=== PATIENT | female | born 1950 | race Caucasian/White ===

== ENCOUNTER 2019-08-19 10:07 | Emergency (ER) | payer OTHER ==
[~2019-08-19] VITALS: Ht 172.7 cm; Wt 98.9 kg
[2019-08-19] MEDS ORDERED: OMEGA-3 FISH1200 MG PO (10:20)
[2019-08-19] MEDS ORDERED: ASPIR 8181 M1 PO (10:20)
[2019-08-19] MEDS ORDERED: CRESTOR10 MG PO (10:22)
[2019-08-19] MEDS ORDERED: XIGDUO XR 10 M1 EAC1 PO (10:22)
[2019-08-19] MEDS ORDERED: GLUCOSAMINE1000 MG PO (10:23)
[2019-08-19 10:30] LABS: ABSOLUTE NEUTROPHILS 7.9 thou/uL (1.4-8.2); BASOPHILS 0.9 % (0.0-2.0); EOSINOPHILS 2.9 % (0.0-3.0); HEMATOCRIT 49.2 % (37.0-47.0); HEMOGLOBIN 15.8 gm/dL (12.0-15.0); LYMPHOCYTES 14.5 % (24.0-44.0); MCH 29.7 pg (26.0-34.0); MCHC 32.2 g/dL (28.0-37.0); MCV 92.2 fL (80.0-100.0); MONOCYTES 5.8 % (1.0-8.0); PLATELET COUNT 311 thou/uL (150-400); POLYS 75.9 % (36.0-66.0); RBC 5.34 mil/uL (4.20-5.00); RDW 13.7 % (10.5-14.5); WBC 10.4 thou/uL (4.0-11.0)
[2019-08-19 10:35] LABS: ANION GAP 12 mmol/L (7-16); BUN 18 mg/dL (7-18); CALCIUM 9.7 mg/dL (8.5-10.1); CHLORIDE 105 mmol/L (98-107); CO2 25 mmol/L (21-32); GLUCOSE 273 mg/dL (74-106); POTASSIUM 4.6 mmol/L (3.5-5.1); SODIUM 142 mmol/L (136-145)
[2019-08-19] MEDS ORDERED: CRANBERRY400 M1 PO (10:39)
[2019-08-19] MEDS ORDERED: BLACK COHOSH540 MG PO (10:40)
[2019-08-19 10:45] LABS: ALBUMIN 4.1 g/dL (3.4-5.0); SGOT 19 U/L (15-37); SGPT 21 U/L (30-65); TOTAL BILIRUBIN 0.5 mg/dL (<0.1-1.0); TOTAL PROTEIN 7.8 g/dL (6.4-8.2); TROPONIN-I <0.06 ng/mL (<0.06)
[2019-08-19 12:03] VITALS: BP 126/61
--- NOTE | 2019-08-19 21:48 | EKG ---
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1950 Requested By: Alana Granados Order Number: [id number] MD: Surendra Cardenas Measurements Intervals [place] Rate: 93 P: 74 TN: 159 QRS: 79 QRSD: 96 T: 40 QT: 344 QTc: 428 Interpretive Statements Sinus rhythm Normal tracing Compared to ECG 04/26/2015 14:04:11 Sinus arrhythmia no longer present Electronically Signed On 08-19-2019 21:48:37 AIX ADMINISTRATOR by Surendra Cardenas [email or web address] <ELECTRONICALLY SIGNED> By: Surendra Cardenas MD, [facility] 08/19/19 [id number] [phone] Surendra Cardenas MD, FACC /EPI
== END 2019-08-19 12:05 | disposition home or self-care (01) ==
LOC: ER 10:07
PROVIDERS: Emergency Medicine
DX: I47.9 Paroxysmal tachycardia, unspecified (principal); E11.9 Type 2 diabetes mellitus without complications; Z88.2 Allergy status to sulfonamides

== ENCOUNTER 2019-08-30 07:07 | Inpatient (IN) | payer OTHER ==
[~2019-08-30] VITALS: Ht 172.7 cm; Wt 100.7 kg
[2019-08-30] VITALS (7 sets, daily range): BP systolic 119–171; BP diastolic 54–113
[~2019-08-30 07:07] MED LIST: ASPIR 8181 M1 PO; BLACK COHOSH540 MG PO; CRANBERRY400 M1 PO; CRESTOR10 MG PO; GLUCOSAMINE1000 MG PO; OMEGA-3 FISH1200 MG PO; XIGDUO XR 10 M1 EAC1 PO
[2019-08-30 07:27] LABS: ABSOLUTE NEUTROPHILS 4.9 thou/uL (1.4-8.2); BASOPHILS 0.7 % (0.0-2.0); EOSINOPHILS 9.6 % (0.0-3.0); HEMATOCRIT 49.2 % (37.0-47.0); HEMOGLOBIN 15.9 gm/dL (12.0-15.0); LYMPHOCYTES 17.3 % (24.0-44.0); MCH 29.7 pg (26.0-34.0); MCHC 32.3 g/dL (28.0-37.0); MCV 91.9 fL (80.0-100.0); MONOCYTES 7.2 % (1.0-8.0); PLATELET COUNT 287 thou/uL (150-400); POLYS 65.2 % (36.0-66.0); RBC 5.35 mil/uL (4.20-5.00); RDW 13.4 % (10.5-14.5); WBC 7.5 thou/uL (4.0-11.0)
[2019-08-30 07:34] LABS: ANION GAP 12 mmol/L (7-16); BUN 19 mg/dL (7-18); CALCIUM 9.9 mg/dL (8.5-10.1); CHLORIDE 103 mmol/L (98-107); CO2 26 mmol/L (21-32); CREATININE 0.9 mg/dL (0.6-1.0); GLUCOSE 219 mg/dL (74-106); POTASSIUM 4.3 mmol/L (3.5-5.1); SODIUM 141 mmol/L (136-145)
[2019-08-30 07:45] LABS: ALBUMIN 3.9 g/dL (3.4-5.0); MAGNESIUM 1.9 mg/dL (1.8-2.4); SGOT 12 U/L (15-37); SGPT 24 U/L (30-65); TOTAL BILIRUBIN 0.5 mg/dL (<0.1-1.0); TROPONIN-I <0.06 ng/mL (<0.06)
[2019-08-30] MEDS ORDERED: CEFDINIR300 MG PO (07:53)
--- NOTE | 2019-08-30 08:56 | EKG ---
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 : 1950 Requested By: Peri Jolley Order Number: [id number] MD: Surendra Cardenas Measurements Intervals [place] Rate: 141 P: [place]: QRS: 86 QRSD: 92 T: -72 QT: 292 QTc: 447 Interpretive Statements Atrial fibrillation Borderline right axis deviation Repol abnrm suggests ischemia, diffuse leads Compared to ECG 08/19/2019 10:18:04 ST segment abnormality is new Sinus rhythm no longer present Electronically Signed On 08-30-2019 8:56:11 ROLL TRUCKER by Surendra Cardenas [email or web address] <ELECTRONICALLY SIGNED> By: Surendra Cardenas MD, [facility] 08/30/19 [phone] Surendra Cardenas MD, FACC /EPI
--- NOTE | 2019-08-30 11:36 | NUR ---
PT IS ALERT AND ORIENTED X4. SPOUSE AT BEDSIDE FOR SUPPORT. LUNGS ARE CLEAR. PT IS IN AFIB AT A RATE OF 87. ECHO AT BEDSIDE BEING DONE. PT HAS HAD HEART PALPATIONS SHE REPORTS WHAT BROUGHT HER TO THE HOSPITAL. DENIES ANY CHEST PAIN AT THIS TIME. CONSULT PLACED TO CARDIOLOGY. SCDS ON BILATERAL NO ISSUES OR CONCERNS NOTED AT THIS TIME.
--- NOTE | 2019-08-30 11:59 | 2DMMODE ---
[facility] [address] [place] [address] 2 D/M-MODE ECHOCARDIOGRAM Name: ERMACONSUELO DRISCOLL Room #: 218-P ADM IN M.R.#: [id number] Admission: 08/30/19 Attend Phys: Morgan Yanes Discharge: Date of : 54 Report #: [id number] THIS REPORT FOR: //name// APPROVED REPORT Study performed: 08/30/2019 11:04:04 EXAM: Comprehensive 2D, Doppler, and color-flow Echocardiogram Patient Location: Bedside Room #: 218 Status: routine BSA: 2.11 HR: 80 bpm BP: 130/79 mmHg Rhythm: Atrial Fibrillation Other Information Study Quality: Adequate/difficult parasternal views. Indications Afib with RVR. DM, HTN, HLP. 2D Dimensions RVDd: 32.03 mm IVSd: 10.32 (7-11mm) LVOT Diam: 19.94 (18-24mm) LVDd: 33.51 mm PWd: 9.89 (7-11mm) LVDs: 22.95 (25-40mm) Aortic Root: 27.60 mm Volumes Left Atrial Volume (Systole) Single Plane 4CH: 45.09 mL Single Plane 2CH: 56.66 mL LA ESV Index: 27.00 mL/m2 Aortic Valve AoV Peak Paxton.: 1.28 m/s AO Peak Gr.: 6.78 mmHg LVOT Max P.57 mmHg LVOT Max V: 1.18 m/s CAROLIN Vmax: 2.87 cm2 Mitral Valve MV Decel. Time: 205.75 ms [facility] [address] [place] [address] 2 D/M-MODE ECHOCARDIOGRAM Name: CONSUELO RITCHIE Room #: 218-P [facility] IN [facility].#: [id number] Admission: 08/30/19 Attend Phys: Morgan Yanes Discharge: Date of : 54 Report #: [id number] E Max Paxton.: 0.93 m/s IVRT: 87.66 ms Tricuspid Valve RAP Estimate: 5.00 mmHg Left Ventricle The left ventricle is normal size. There is normal LV segmental wall motion. There is normal left ventricular wall thickness. Left ventricular systolic function is normal. LVEF is 65-70%. This study is not technically sufficient to allow evaluation of the LV diastolic function due to atrial fibrillation. Right Ventricle The right ventricle is normal size. The right ventricular systolic function is normal. Atria The left atrium size is normal. The right atrium size is normal. Aortic Valve The aortic valve is normal in structure. No aortic regurgitation is present. There is no aortic valvular stenosis. Mitral Valve The mitral valve is normal in structure. There is no mitral valve regurgitation noted. No evidence of mitral valve stenosis. Tricuspid Valve The tricuspid valve is normal in structure. There is no tricuspid valve regurgitation noted. Unable to assess PA pressure. Pulmonic Valve Pulmonic valve is not well visualized. Great Vessels The aortic root is normal in size. IVC is normal in size and collapses >50% with inspiration. Pericardium There is no pericardial effusion. <Conclusion> The left ventricle is normal size. There is normal left ventricular wall thickness. [facility] [address] [address] 2 D/M-MODE ECHOCARDIOGRAM Name: CONSUELO RITCHIE Room #: [facility] ADM IN .R.#: [id number] Admission: 08/30/19 Attend Phys: Morgan Yanes Discharge: Date of : 54 Report #: [id number] Left ventricular systolic function is normal. The right ventricle is normal size. The left atrium size is normal. The aortic valve is normal in structure. There is no mitral valve regurgitation noted. There is no tricuspid valve regurgitation noted. <ELECTRONICALLY SIGNED> By: Alonso Cleaning MD 08/30/19 [id number] Alonso Cleaning MD /INF
--- NOTE | 2019-08-30 15:07 | NUR ---
CONTINUE TO PROGRESS TOWARDS ONGOING GOALS AND CARE PLAN PER NURSING. SPOUSE AT BEDSIDE FOR SUPPORT.
[2019-08-31 00:05] VITALS: BP 118/51
[2019-08-31 02:07] LABS: GLYCOHEMOGLOBIN (HGB A1C) 7.5 % (4.8-5.6)
--- NOTE | 2019-08-31 03:01 | NUR ---
ASSUMED CARE OF PATIENT AT 1900. VSS, AFEBRILE. UP AD TITUS IN THE ROOM. DENIES PAIN, SOA OR N/V. AMIODARONE GTT INFUSING PER ORDERS. SLEEPING IN CHAIR, STATES THAT IT IS MORE COMFORTABLE. NO OTHER CONCERNS AT THIS TIME. PROGRESSING TOWARDS POC GOALS.
[2019-08-31 03:10] VITALS: BP 134/56
[2019-08-31 05:53] LABS: ABSOLUTE NEUTROPHILS 7.2 thou/uL (1.4-8.2); BASOPHILS 0.8 % (0.0-2.0); EOSINOPHILS 6.9 % (0.0-3.0); HEMATOCRIT 42.2 % (37.0-47.0); LYMPHOCYTES 10.5 % (24.0-44.0); MCH 29.3 pg (26.0-34.0); MCHC 31.8 g/dL (28.0-37.0); MCV 92.2 fL (80.0-100.0); MONOCYTES 6.6 % (1.0-8.0); PLATELET COUNT 271 thou/uL (150-400); POLYS 75.2 % (36.0-66.0); RBC 4.57 mil/uL (4.20-5.00); RDW 13.6 % (10.5-14.5); WBC 9.6 thou/uL (4.0-11.0)
[2019-08-31 06:05] LABS: HEMOGLOBIN 13.4 gm/dL (12.0-15.0)
[2019-08-31 06:21] LABS: ANION GAP 11 mmol/L (7-16); BUN 21 mg/dL (7-18); CALCIUM 9.1 mg/dL (8.5-10.1); CHLORIDE 103 mmol/L (98-107); CHOLESTEROL 157 mg/dL (<200); CO2 25 mmol/L (21-32); CREATININE 0.9 mg/dL (0.6-1.0); GLUCOSE 176 mg/dL (74-106); HDL CHOLESTEROL 48 mg/dL (>40); LDL CHOLESTEROL 95 mg/dL (<100); MAGNESIUM 1.9 mg/dL (1.8-2.4); POTASSIUM 3.9 mmol/L (3.5-5.1); SODIUM 139 mmol/L (136-145); TC:HDL 3.3 Ratio (Not establshd); TRIGLYCERIDE 74 mg/dL (<150); VLDL 15 mg/dL (<40)
[2019-08-31 06:29] LABS: SERUM ASSESSMENT Clear
[2019-08-31 08:00] VITALS: BP 137/48
--- NOTE | 2019-08-31 08:25 | EKG ---
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
--- NOTE | 2019-08-31 08:34 | EKG ---
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 : 1950 Requested By: Lakeshia Curtis Order Number: [id number] MD: Ricardo Valerio Measurements Intervals [place] Rate: 61 P: 48 [place]: 166 QRS: 75 QRSD: 105 T: -37 QT: 425 QTc: 428 Interpretive Statements Sinus rhythm Atrial premature complex Borderline repolarization abnormality Compared to ECG 08/30/2019 07:10:02 Atrial premature complex(es) now present Atrial fibrillation no longer present Possible ischemia no longer present Electronically Signed On 08-31-2019 8:34:33 KOSHER SEALER by Ricardo Valerio [email or web address] <ELECTRONICALLY SIGNED> By: Ricardo Valerio MD 08/31/19 0834 [phone] Ricardo Valerio MD /EPI
[2019-08-31] MEDS ORDERED: PACERONE 200 M200 M1 PO (08:37)
[2019-08-31] MEDS ORDERED: PRADAXA150 MG PO (08:37)
[2019-08-31 12:00] VITALS: BP 133/57
[2019-08-31 14:52] VITALS: BP 133/57
[2019-08-31 15:15] VITALS: BP 133/57
== END 2019-08-31 15:19 | disposition home or self-care (01) | DRG 308 ==
LOC: ER 07:07 → 2N 09:18 → EROBS 09:18 → 2N 10:14 → ENTRNSPT 08-31 15:09 → EDTRNSPTSTS 08-31 15:11 → 2N 08-31 15:19
PROVIDERS: Emergency Medicine Emergency Medical Services; Nurse Practitioner; ADMIT Hospitalist
DX: I48.91 Unspecified atrial fibrillation (principal); E43 Unspecified severe protein-calorie malnutrition; E11.9 Type 2 diabetes mellitus without complications; I48.20 Chronic atrial fibrillation, unspecified; E78.5 Hyperlipidemia, unspecified; E03.9 Hypothyroidism, unspecified; Z68.33 Body mass index [BMI] 33.0-33.9, adult; Z79.899 Other long term (current) drug therapy; Z79.82 Long term (current) use of aspirin; Z88.2 Allergy status to sulfonamides; Z98.49 Cataract extraction status, unspecified eye; Z90.49 Acquired absence of other specified parts of digestive tract; Z98.891 History of uterine scar from previous surgery; Z82.49 Family history of ischemic heart disease and other diseases of the circulatory system
CPT/HCPCS: 10081

== ENCOUNTER → 2019-10-19 | Outpatient (CLI) | payer OTHER ==
[~2019-10-19] MED LIST changes: +CEFDINIR300 MG PO; +PACERONE 200 M200 M1 PO; +PRADAXA150 MG PO
== END ==
LOC: CAT 09:32
DX: Z13.6 Encounter for screening for cardiovascular disorders (principal); E78.00 Pure hypercholesterolemia, unspecified; I25.10 Atherosclerotic heart disease of native coronary artery without angina pectoris

== ENCOUNTER → 2021-09-05 | Outpatient (CLI) | payer OTHER | LOC: SJCVCIMAG 09:11 | PROVIDERS: ATTEND Internal Medicine | DX: I35.8 Other nonrheumatic aortic valve disorders (principal); I48.91 Unspecified atrial fibrillation; I10 Essential (primary) hypertension; E78.5 Hyperlipidemia, unspecified; E03.9 Hypothyroidism, unspecified; E11.9 Type 2 diabetes mellitus without complications; Z87.891 Personal history of nicotine dependence; Z72.89 Other problems related to lifestyle; Z88.2 Allergy status to sulfonamides; Z88.8 Allergy status to other drugs, medicaments and biological substances; Z79.899 Other long term (current) drug therapy ==